=== PATIENT | male | born 1970 | race Caucasian/White ===

== ENCOUNTER 2018-10-12 08:53 | Inpatient (IN) | payer OTHER ==
[~2018-10-12] VITALS: Ht 188 cm; Wt 107.7 kg
[2018-10-12 10:18] LABS: BASOPHILS # (AUTO) 0.02 x10^3/uL (0-0.1); BASOPHILS % (AUTO) 0 % (0-1); EOSINOPHILS # (AUTO) 0.06 x10^3/uL (0-0.4); EOSINOPHILS % (AUTO) 1 % (1-7); LYMPHOCYTES # (AUTO) 2.41 x10^3/uL (1-3.4); LYMPHOCYTES % (AUTO) 25 % (22-44); MD NO; MEAN CORPUSCULAR HEMOGLOBIN 30.9 pg (27.5-34.5); MEAN CORPUSCULAR HGB CONC 33.5 g/dL (33.2-36.2); MEAN CORPUSCULAR VOLUME 92.3 fL (81-97); MEAN PLATELET VOLUME 7.9 fL (7.4-10.4); MONOCYTES # (AUTO) 0.68 x10^3/uL (0.2-0.8); MONOCYTES % (AUTO) 7 % (2-9); NEUTROPHILS # (AUTO) 6.65 x10^3/uL (1.8-6.8); NEUTROPHILS % (AUTO) 68 % (42-75); PLATELET COUNT 231 x10^3/uL (130-400); RED BLOOD COUNT 5.35 x10^6/uL (4.38-5.82); RED CELL DISTRIBUTION WIDTH 13.4 % (9.4-14.8)
[2018-10-12 10:28] LABS: INTERNATIONAL NORMALIZED RATIO 1.06 (0.93-1.1); PROTHROMBIN TIME 11.2 Seconds (9.6-11.5)
[2018-10-12 10:38] LABS: ANION GAP 7 mmol/L (5-15); CALCIUM 9.5 mg/dL (8.5-10.1); CHLORIDE 106 mmol/L (98-107)
[2018-10-12] MEDS ORDERED: DEXAMETHASONE 4 MG TABLET ONE (10:42)
[2018-10-12 10:45] LABS: ACETAMINOPHEN < 2 mcg/mL (10-30); ALANINE AMINOTRANSFERASE 26 U/L (12-78); ALKALINE PHOSPHATASE 88 U/L (45-117); BILIRUBIN,TOTAL 1.1 mg/dL (0.2-1.0); CREATININE 1.04 mg/dL (0.7-1.3); SALICYLATE LEVEL < 1.7 mg/dL (2.8-20.0); TOTAL PROTEIN 7.8 g/dL (6.4-8.2); TROPONIN I < 0.015 ng/mL (0.000-0.045)
--- NOTE | 2018-10-12 10:48 | NUR ---
PT MOVED TO ROOM 02. PT TAKEN TO MRI. PT IS ALERT, ORIENTED, WITH NAD.
[2018-10-12 10:57] LABS: MICROSCOPIC NOT IND
[2018-10-12 10:58] LABS: CULTURE INDICATED? NO
[2018-10-12] MEDS ORDERED: DEXAMETHASONE 4 MG TABLET PO ONE (11:00)
[2018-10-12 11:07] LABS: AMPHETAMINE SCREEN, URINE Negative (Negative); BARBITURATE SCREEN, URINE Negative (Negative); BENZODIAZEPINE SCREEN, URINE Negative (Negative); CANNABINOID SCREEN, URINE Positive (Negative); COCAINE SCREEN, URINE Negative (Negative); METHADONE SCREEN, URINE Negative (Negative); OPIATE SCREEN, URINE Negative (Negative)
[2018-10-12] MEDS ORDERED: GADOBUTROL 10 MMOL/10 ML PFS ONE (11:36)
--- NOTE | 2018-10-12 11:37 | NUR ---
NIHSS COMPLETED WITH A SCORE OF 1 DUE TO DIFFICULTY NAMING A FEW OF THE OBJECTS ON THE NAMING LIST.
--- NOTE | 2018-10-12 12:26 | NUR ---
HOSPITALIST AT BEDSIDE.
[2018-10-12] MEDS ORDERED: OXYcodone/APAP 10/325MG TABLET ONE (12:53)
[2018-10-12] MEDS ORDERED: hydrALAzine 20 MG/ML, 1ML IVPush PRN (13:00)
[2018-10-12] MEDS ORDERED: ACETAMINOPHEN 325 MG TABLET PO PRN (13:00)
[2018-10-12] MEDS ORDERED: OXYcodone/APAP 10/325MG TABLET PO ONE (13:00)
[2018-10-12] MEDS ORDERED: ONDANSETRON 2MG/ML, 2ML IVPush PRN (13:00)
[2018-10-12] MEDS ORDERED: GUAIFENESIN/DM 200-20MG, 10ML UDC PO PRN (13:00)
[2018-10-12] MEDS ORDERED: ONDANSETRON ODT 4 MG PO PRN (13:00)
--- NOTE | 2018-10-12 13:24 | NUR ---
TASK RN: FIRST CONTACT WITH PT: PROVIDED REPORT TO SHYANNE HORTA. ALL QUESTIONS ANSWERED. PT READY TO TRANSFER TO FLOOR FROM ED.
[2018-10-12 14:00] VITALS: BP 123/80
[2018-10-12] MEDS: DEXAMETHASONE 4 MG/ML, 1ML IVPush SCH ×2 (14:36→19:58)
[2018-10-12 19:58] VITALS: BP 106/68
[2018-10-13 02:19] VITALS: BP 107/60
[2018-10-13] MEDS: DEXAMETHASONE 4 MG/ML, 1ML IVPush SCH ×4 (02:44→20:38)
[2018-10-13 05:14] LABS: BASOPHILS % (AUTO) 0 % (0-1); EOSINOPHILS % (AUTO) 0 % (1-7); LYMPHOCYTES # (AUTO) 1.14 x10^3/uL (1-3.4); LYMPHOCYTES % (AUTO) 12 % (22-44); MD NO; MEAN CORPUSCULAR HEMOGLOBIN 31.7 pg (27.5-34.5); MEAN CORPUSCULAR VOLUME 93.3 fL (81-97); MEAN PLATELET VOLUME 8.1 fL (7.4-10.4); MONOCYTES # (AUTO) 0.19 x10^3/uL (0.2-0.8); MONOCYTES % (AUTO) 2 % (2-9); NEUTROPHILS % (AUTO) 86 % (42-75); PLATELET COUNT 249 x10^3/uL (130-400); RED BLOOD COUNT 5.23 x10^6/uL (4.38-5.82); RED CELL DISTRIBUTION WIDTH 13.8 % (9.4-14.8)
[2018-10-13 05:25] LABS: ALBUMIN 3.7 g/dL (3.4-5.0); ANION GAP 9 mmol/L (5-15); CALCIUM 9.7 mg/dL (8.5-10.1); CHLORIDE 109 mmol/L (98-107)
[2018-10-13 05:29] LABS: ALANINE AMINOTRANSFERASE 21 U/L (12-78); ALKALINE PHOSPHATASE 78 U/L (45-117); BILIRUBIN,TOTAL 1.2 mg/dL (0.2-1.0); CREATININE 0.94 mg/dL (0.7-1.3); TOTAL PROTEIN 7.6 g/dL (6.4-8.2)
[2018-10-13 09:07] VITALS: BP 117/77
[2018-10-13 12:30] VITALS: BP 113/72
[2018-10-13 18:37] VITALS: BP 118/74
[2018-10-14 00:05] VITALS: BP 116/69
[2018-10-14] MEDS: DEXAMETHASONE 4 MG/ML, 1ML IVPush SCH ×4 (03:48→20:38)
[2018-10-14] MEDS ORDERED: THROMBIN 5,000 UNIT VIAL TP ONE ×2 (06:57→06:58)
[2018-10-14] MEDS ORDERED: BACITRACIN 50,000 UNIT ONE (06:57)
[2018-10-14] MEDS ORDERED: BACITRACIN/POLYMIXIN B SULFATE OINT 14 GM ONE (06:57)
[2018-10-14] MEDS ORDERED: BUPIVACAINE/PF-EPI 0.5% 1:200K ONE (06:57)
[2018-10-14] MEDS ORDERED: MANNITOL PMX 20% 500 ML ONE (06:59)
[2018-10-14] MEDS ORDERED: CEFUROXIME 1.5 GM ONE (07:00)
[2018-10-14] MEDS ORDERED: FUROSEMIDE 20 MG/2 ML ONE (07:00)
[2018-10-14] MEDS ORDERED: THROMBIN 20,000 UNIT VIAL TP ONE (07:00)
[2018-10-14] MEDS ORDERED: REMIFENTANIL 2 MG ONE ×2 (07:12→09:43)
[2018-10-14] MEDS ORDERED: MIDAZOLAM 1 MG/ML, 2ML ONE (07:19)
[2018-10-14] MEDS ORDERED: FENTANYL PF 250 MCG/5ML ONE (07:19)
[2018-10-14] MEDS ORDERED: GADOBUTROL 10 MMOL/10 ML PFS ONE (07:45)
[2018-10-14] MEDS ORDERED: LORazepam 2 MG/ML, 1ML IVPush PRN (08:00)
[2018-10-14] MEDS ORDERED: OXYcodone 5 MG/5 ML ORAL.SOL UDC PO PRN (08:00)
[2018-10-14] MEDS ORDERED: ONDANSETRON ODT 8 MG PO PRN (08:00)
[2018-10-14] MEDS ORDERED: FENTANYL PF 100 MCG/2ML IV PRN (08:00)
[2018-10-14] MEDS ORDERED: ONDANSETRON 2MG/ML, 2ML IV PRN ×2 (08:00→14:00)
[2018-10-14] MEDS ORDERED: HYDROmorphone 2 MG/ML, 1ML IVPush PRN (08:00)
[2018-10-14] MEDS ORDERED: ACETAMINOPHEN 325 MG TABLET PO PRN ×2 (08:00→14:00)
[2018-10-14] MEDS ORDERED: PROMETHAZINE 25 MG/ML, 1ML IV PRN (08:00)
[2018-10-14] MEDS ORDERED: FENTANYL PF 100 MCG/2ML ONE ×2 (11:50→12:06)
[2018-10-14] MEDS ORDERED: LORazepam 2 MG/ML, 1ML IV PRN (14:00)
[2018-10-14] MEDS ORDERED: NITROPRUSSIDE 50 MG in DEXTROSE 5% 248 ML IV PRN (14:00)
[2018-10-14] MEDS ORDERED: LABETALOL 250 MG in DEXTROSE 5% 200 ML IV PRN (14:00)
[2018-10-14] MEDS ORDERED: ACETAMINOPHEN 650 MG SUPP PR PRN ×2 (14:00)
[2018-10-14] MEDS: OXYcodone/APAP 5/325MG TABLET PO PRN ×2 (14:32→22:35)
[2018-10-14] MEDS: morphine SULFATE 10 MG/ML, 1ML IVPush PRN (14:32)
[2018-10-14] MEDS: CEFAZOLIN PMX 1GM/50ML 50 ML IVPB SCH ×2 (14:47→22:00)
[2018-10-14] MEDS: D5%-0.9% NACL+KCL 20MEQ 1,000 ML IV SCH (14:47)
[2018-10-14] MEDS ORDERED: PROPOFOL 10 MG/ML, 20ML ONE (15:39)
[2018-10-14] MEDS ORDERED: NEOSTIGMINE 1 MG/ML, 10ML ONE (15:39)
[2018-10-14] MEDS ORDERED: CEFAZOLIN 1,000 MG ONE (15:39)
[2018-10-14] MEDS ORDERED: ONDANSETRON 2MG/ML, 2ML ONE (15:39)
[2018-10-14] MEDS ORDERED: ROCURONIUM 10MG/ML,5ML ONE (15:39)
[2018-10-14] MEDS ORDERED: GLYCOPYRROLATE 0.2MG/1ML, 5ML ONE (15:39)
[2018-10-14] MEDS ORDERED: DEXAMETHASONE 4 MG/ML, 5ML ONE (15:39)
[2018-10-15] MEDS: morphine SULFATE 10 MG/ML, 1ML IVPush PRN ×6 (00:04→19:45)
[2018-10-15] MEDS: DEXAMETHASONE 4 MG/ML, 1ML IVPush SCH ×4 (02:27→19:50)
[2018-10-15] MEDS: D5%-0.9% NACL+KCL 20MEQ 1,000 ML IV SCH ×2 (02:27→15:33)
[2018-10-15 08:00] VITALS: BP 104/62
[2018-10-15 13:15] VITALS: BP 134/74
[2018-10-15] MEDS: OXYcodone/APAP 5/325MG TABLET PO PRN ×2 (15:30→19:49)
[2018-10-15 21:00] VITALS: BP 107/66
[2018-10-16] MEDS: morphine SULFATE 10 MG/ML, 1ML IVPush PRN (02:45)
[2018-10-16] MEDS: OXYcodone/APAP 5/325MG TABLET PO PRN (02:47)
[2018-10-16] MEDS: DEXAMETHASONE 4 MG/ML, 1ML IVPush SCH ×4 (02:49→20:01)
[2018-10-16] MEDS: D5%-0.9% NACL+KCL 20MEQ 1,000 ML IV SCH ×2 (03:00→15:09)
[2018-10-16 03:11] VITALS: BP 120/78
[2018-10-16] MEDS: ACETAMINOPHEN 325 MG TABLET PO PRN ×2 (11:52→20:01)
[2018-10-16] MEDS ORDERED: GADOBUTROL 10 MMOL/10 ML PFS ONE (14:46)
[2018-10-17] MEDS: ACETAMINOPHEN 325 MG TABLET PO PRN ×3 (02:57→15:18)
[2018-10-17] MEDS: DEXAMETHASONE 4 MG/ML, 1ML IVPush SCH ×2 (02:57→08:39)
[2018-10-17] MEDS: D5%-0.9% NACL+KCL 20MEQ 1,000 ML IV SCH (03:18)
[2018-10-17] MEDS ORDERED: FENTANYL PF 100 MCG/2ML IVPush ONE (09:00)
[2018-10-17] MEDS ORDERED: MIDAZOLAM 1 MG/ML, 2ML IVPush ONE (09:00)
[2018-10-17 09:23] LABS: MEAN CORPUSCULAR HEMOGLOBIN 31.1 pg (27.5-34.5); MEAN CORPUSCULAR HGB CONC 33.3 g/dL (33.2-36.2); MEAN CORPUSCULAR VOLUME 93.3 fL (81-97); MEAN PLATELET VOLUME 7.9 fL (7.4-10.4); PLATELET COUNT 230 x10^3/uL (130-400); RED BLOOD COUNT 4.68 x10^6/uL (4.38-5.82); RED CELL DISTRIBUTION WIDTH 13.6 % (9.4-14.8)
[2018-10-17 09:31] LABS: ANION GAP 6 mmol/L (5-15); CHLORIDE 110 mmol/L (98-107)
[2018-10-17 09:32] LABS: CREATININE 0.86 mg/dL (0.7-1.3)
[2018-10-17] MEDS: OXYcodone/APAP 5/325MG TABLET PO PRN (10:07)
[2018-10-17 10:12] LABS: BASOPHILS # (AUTO) 0.05 x10^3/uL (0-0.1); BASOPHILS % (AUTO) 0 % (0-1); EOSINOPHILS % (AUTO) 0 % (1-7); LYMPHOCYTES # (AUTO) 1.39 x10^3/uL (1-3.4); LYMPHOCYTES % (AUTO) 9 % (22-44); MD SCAN; MONOCYTES # (AUTO) 0.82 x10^3/uL (0.2-0.8); MONOCYTES % (AUTO) 5 % (2-9); NEUTROPHILS # (AUTO) 13.48 x10^3/uL (1.8-6.8); NEUTROPHILS % (AUTO) 86 % (42-75)
[2018-10-17] MEDS: DEXAMETHASONE 4 MG TABLET PO SCH ×2 (16:47→21:38)
[2018-10-17] MEDS: DOCUSATE 100 MG CAPSULE PO PRN (16:47)
[2018-10-17] MEDS: BUTALB/APAP/CAFFEINE 50MG/325MG/40MG PO PRN (21:38)
[2018-10-17] MEDS: ATORVASTATIN 80 MG TABLET PO SCH (21:38)
[2018-10-17] MEDS: FAMOTIDINE 20 MG TABLET PO SCH (21:38)
[2018-10-18 03:53] VITALS: BP 103/63
[2018-10-18 05:19] LABS: BASOPHILS # (AUTO) 0.01 x10^3/uL (0-0.1); BASOPHILS % (AUTO) 0 % (0-1); EOSINOPHILS % (AUTO) 0 % (1-7); LYMPHOCYTES # (AUTO) 1.49 x10^3/uL (1-3.4); LYMPHOCYTES % (AUTO) 10 % (22-44); MD NO; MEAN CORPUSCULAR HEMOGLOBIN 31.8 pg (27.5-34.5); MEAN CORPUSCULAR HGB CONC 34.1 g/dL (33.2-36.2); MEAN CORPUSCULAR VOLUME 93.1 fL (81-97); MEAN PLATELET VOLUME 7.8 fL (7.4-10.4); MONOCYTES # (AUTO) 0.73 x10^3/uL (0.2-0.8); MONOCYTES % (AUTO) 5 % (2-9); NEUTROPHILS # (AUTO) 12.17 x10^3/uL (1.8-6.8); NEUTROPHILS % (AUTO) 85 % (42-75); PLATELET COUNT 226 x10^3/uL (130-400); RED BLOOD COUNT 4.87 x10^6/uL (4.38-5.82)
[2018-10-18 05:31] LABS: ANION GAP 6 mmol/L (5-15); CALCIUM 8.9 mg/dL (8.5-10.1); CHLORIDE 108 mmol/L (98-107)
[2018-10-18 05:35] LABS: CHOL/HDL RATIO 3.3; CHOLESTEROL, TOTAL 144 mg/dL (140-239); CREATININE 0.95 mg/dL (0.7-1.3); HDL CHOL % 30 % (26-37); HDL CHOLESTEROL (DIRECT) 43 mg/dL (40-60); LDL CHOLESTEROL,CALCULATED 84 mg/dL (54-169); TRIGLYCERIDES 83 mg/dL (50-200); VLDL CHOLESTEROL 17 mg/dL (0-25)
[2018-10-18 07:13] VITALS: BP 119/73
[2018-10-18] MEDS: BUTALB/APAP/CAFFEINE 50MG/325MG/40MG PO PRN (08:16)
[2018-10-18] MEDS: FAMOTIDINE 20 MG TABLET PO SCH ×2 (08:16→20:55)
[2018-10-18] MEDS: DEXAMETHASONE 4 MG TABLET PO SCH ×3 (08:16→20:55)
[2018-10-18 13:35] VITALS: BP 96/58
[2018-10-18] MEDS: DOCUSATE 100 MG CAPSULE PO PRN (16:36)
[2018-10-18] MEDS: ACETAMINOPHEN 325 MG TABLET PO PRN (18:29)
[2018-10-18 18:37] VITALS: BP 123/72
[2018-10-18] MEDS: ATORVASTATIN 80 MG TABLET PO SCH (20:57)
[2018-10-19 02:21] VITALS: BP 105/66
[2018-10-19 06:52] VITALS: BP 119/75
[2018-10-19] MEDS: FAMOTIDINE 20 MG TABLET PO SCH (09:04)
[2018-10-19] MEDS: DEXAMETHASONE 4 MG TABLET PO SCH ×2 (09:04→16:07)
[2018-10-19] MEDS: ACETAMINOPHEN 325 MG TABLET PO PRN (10:29)
[2018-10-19 13:17] VITALS: BP 121/65
[2018-10-19] MEDS ORDERED: FAMO20TA7 PO (13:53)
[2018-10-19] MEDS ORDERED: BUTA-177 PO (13:53)
[2018-10-19] MEDS ORDERED: DOCU-131 PO (13:53)
[2018-10-19] MEDS ORDERED: ONDA4TAB13 PO (13:53)
[2018-10-19] MEDS ORDERED: DEXA4TAB66 PO (13:53)
[2018-10-19] MEDS ORDERED: ATOR-2 PO (13:53)
[2018-10-19] MEDS ORDERED: OXYC1TAB7 PO (13:53)
== END 2018-10-19 17:42 | disposition home or self-care (01) | DRG 25 ==
LOC: ED 10:32 → EDIP 10:33 → ED 10:43 → 3NW 14:12 → CCU 10-14 12:24 → 4NOR 10-17 16:05
PROVIDERS: ADMIT Internal Medicine; ATTEND Internal Medicine
PROC: 03HY32Z Insertion of Monitoring Device into Upper Artery, Percutaneous Approach (ICD-10-PCS; 2018-10-12)
PROC: 00B70ZZ Excision of Cerebral Hemisphere, Open Approach (ICD-10-PCS; principal; 2018-10-14 07:30)
DX: C71.2 Malignant neoplasm of temporal lobe (principal); G93.6 Cerebral edema; G93.40 Encephalopathy, unspecified; Q21.1 Atrial septal defect; J45.909 Unspecified asthma, uncomplicated; F12.90 Cannabis use, unspecified, uncomplicated; Z80.0 Family history of malignant neoplasm of digestive organs; Z80.3 Family history of malignant neoplasm of breast; Z87.442 Personal history of urinary calculi; Z87.891 Personal history of nicotine dependence; Z90.49 Acquired absence of other specified parts of digestive tract
CPT/HCPCS: 36415; 99285; J3490; 70450; 70552; 70553; 71045; 71250; 74176; 80048; 80053; 80061; 80307; 80329; 81003; 82140; 83605; 83735; 84100; 84484; 85025; 85610; 87081; 88307; 88331; 93005; 93306; 93880; A9585; C1713; G0378; J0690; J0697; J1100; J2250; J2405; J2704; J2710; J3010; 92523-GN; A4648; G0480; J1940; J2270; J3480

== ENCOUNTER → 2018-11-01 | Outpatient (CLI) | payer OTHER ==
[~2018-11-01] MED LIST: ATOR-2 PO; BUTA-177 PO; DEXA4TAB66 PO; DOCU-131 PO; FAMO20TA7 PO; ONDA4TAB13 PO; OXYC1TAB7 PO
== END | disposition home or self-care (01) ==
LOC: ROC 08:17
PROVIDERS: ATTEND Radiology Radiation Oncology
DX: C71.9 Malignant neoplasm of brain, unspecified (principal)
CPT/HCPCS: 99214; G0463

== ENCOUNTER → 2018-11-08 | Outpatient (CLI) | payer OTHER ==
[~2018-11-08] MED LIST changes: +GADOBUTROL 10 MMOL/10 ML PFS ONE
== END | disposition home or self-care (01) ==
LOC: CFH 11:45
PROVIDERS: ATTEND Radiology Radiation Oncology
DX: C71.2 Malignant neoplasm of temporal lobe (principal); I78.1 Nevus, non-neoplastic
CPT/HCPCS: 70553; A9585

== ENCOUNTER 2018-11-22 04:24 | Inpatient (IN) | payer OTHER ==
[~2018-11-22] VITALS: Ht 188 cm; Wt 106.3 kg
[~2018-11-22 04:24] MED LIST changes: -GADOBUTROL 10 MMOL/10 ML PFS ONE
[2018-11-22] MEDS ORDERED: ONDANSETRON ODT 4 MG ONE (05:14)
[2018-11-22] MEDS ORDERED: HYDROmorphone 1 MG/ML, 1ML AMP ONE ×4 (05:14→13:19)
--- NOTE | 2018-11-22 05:14 | NUR ---
PT UNABLE TO SIT STILL FOR AN EKG. WILL TRY AGAIN AT A LATER TIME.
--- NOTE | 2018-11-22 05:15 | NUR ---
PT UNABLE TO SIT OR LIE FOR IV START. GOT MED ORDER CHANGED TO IM
[2018-11-22] MEDS ORDERED: HYDROmorphone 1 MG/ML, 1ML AMP IVPush PRN (05:30)
[2018-11-22] MEDS ORDERED: ONDANSETRON 2MG/ML, 2ML IVPush ONE ×2 (05:30→06:30)
[2018-11-22] MEDS ORDERED: SODIUM CHLORIDE FLUSH 10ML SYR IVF ONE ×2 (05:30→06:30)
[2018-11-22] MEDS ORDERED: HYDROmorphone 2 MG/ML, 1ML IM ONE (05:30)
[2018-11-22] MEDS ORDERED: ONDANSETRON ODT 4 MG PO ONE (05:30)
--- NOTE | 2018-11-22 05:42 | NUR ---
RADIOLGY DELAY- STARTING IV, PATIENT UNABLE TO LIE DOWN FOR X RAY
--- NOTE | 2018-11-22 05:49 | NUR ---
PT UNABLE TO SIT STILL FOR EKG.
[2018-11-22 05:50] LABS: MEAN CORPUSCULAR HEMOGLOBIN 32.2 pg (27.5-34.5); MEAN CORPUSCULAR HGB CONC 33.5 g/dL (33.2-36.2); MEAN CORPUSCULAR VOLUME 96.1 fL (81-97); MEAN PLATELET VOLUME 7.1 fL (7.4-10.4); PLATELET COUNT 147 x10^3/uL (130-400); RED BLOOD COUNT 5.05 x10^6/uL (4.38-5.82); RED CELL DISTRIBUTION WIDTH 16.3 % (9.4-14.8)
[2018-11-22 06:01] LABS: ALANINE AMINOTRANSFERASE 95 U/L (12-78); ALBUMIN 3.8 g/dL (3.4-5.0); ANION GAP 7 mmol/L (5-15); CALCIUM 9.6 mg/dL (8.5-10.1); CHLORIDE 109 mmol/L (98-107)
[2018-11-22 06:06] LABS: ALKALINE PHOSPHATASE 94 U/L (45-117); BILIRUBIN,TOTAL 0.9 mg/dL (0.2-1.0); CREATININE 0.97 mg/dL (0.7-1.3); TOTAL PROTEIN 7.4 g/dL (6.4-8.2); TROPONIN I < 0.015 ng/mL (0.000-0.045)
[2018-11-22] MEDS ORDERED: KETOROLAC 30 MG/1 ML ONE (06:18)
--- NOTE | 2018-11-22 06:26 | NUR ---
PT TO CT
[2018-11-22] MEDS ORDERED: DIAZEPAM 5 MG/ML, 2ML IVPush ONE (06:30)
[2018-11-22] MEDS ORDERED: KETOROLAC 30 MG/1 ML IVPush ONE (06:30)
[2018-11-22 06:42] LABS: MD YES
[2018-11-22 06:44] LABS: BASOPHILS # (AUTO) 0.01 x10^3/uL (0-0.1); BASOPHILS % (AUTO) 0 % (0-1); EOSINOPHILS # (AUTO) 0.01 x10^3/uL (0-0.4); EOSINOPHILS % (AUTO) 0 % (1-7); LYMPHOCYTES # (AUTO) 2.05 x10^3/uL (1-3.4); LYMPHOCYTES % (AUTO) 15 % (22-44); MONOCYTES # (AUTO) 0.41 x10^3/uL (0.2-0.8); MONOCYTES % (AUTO) 3 % (2-9); NEUTROPHILS # (AUTO) 11.54 x10^3/uL (1.8-6.8); NEUTROPHILS % (AUTO) 82 % (42-75)
[2018-11-22 06:45] LABS: BAND#(MANUAL) 0.42 x10^3/uL; BANDS%(MANUAL) 3 % (0-7); LYMPHS% (MANUAL) 15 % (22-44); MONOS% (MANUAL) 10 % (2-9); MYELOCYTES# (MANUAL) 0.14 x10^3/uL (0-0); MYELOCYTES% (MANUAL) 1 % (0-0); SEG#(MANUAL) 9.94 x10^3/uL (1.8-6.8); SEGS% (MANUAL) 71 % (42-75)
[2018-11-22 06:47] LABS: <PLATELET ESTIMATE> ADEQUATE; <PLT MORPHOLOGY> NORMAL PLT MORPH; <RBC MORPHOLOGY> NORMAL
[2018-11-22] MEDS ORDERED: OMNIPAQUE 350 MG/ML, 100ML BOTTLE ONE (07:01)
--- NOTE | 2018-11-22 07:03 | NUR ---
PT GIVEN WATER TO DRINK FOR UA
--- NOTE | 2018-11-22 08:00 | NUR ---
IV VALIEUM HELD AT THIS TIME PATIENT REPORTS PAIN CONTROLLED. PROVIDER MADE AWARE. WILL CONTINUE TO MONITOR
[2018-11-22 08:09] LABS: INTERNATIONAL NORMALIZED RATIO 0.92 (0.93-1.1); PROTHROMBIN TIME 9.7 Seconds (9.6-11.5)
--- NOTE | 2018-11-22 08:31 | NUR ---
HOSPITALIST AT BEDSIDE
[2018-11-22 08:44] LABS: MICROSCOPIC NOT IND
[2018-11-22 08:51] LABS: CULTURE INDICATED? NO
[2018-11-22] MEDS ORDERED: ACETAMINOPHEN 325 MG TABLET PO PRN (09:00)
[2018-11-22] MEDS ORDERED: ONDANSETRON ODT 4 MG PO PRN ×2 (09:00→09:30)
[2018-11-22] MEDS ORDERED: HEPARIN 5,000 UNITS/ML, 1ML ONE (09:03)
[2018-11-22] MEDS ORDERED: HEPARIN 25,000 UNITS/500ML PMX 500 ML ONE (09:03)
[2018-11-22] MEDS ORDERED: DOCUSATE 100 MG CAPSULE PO PRN (09:30)
[2018-11-22] MEDS ORDERED: BUTALB/APAP/CAFFEINE 50MG/325MG/40MG PO PRN (09:30)
[2018-11-22] MEDS ORDERED: OXYcodone/APAP 5/325MG TABLET PO PRN (09:30)
--- NOTE | 2018-11-22 09:57 | NUR ---
PHARMACY CALLED TO VERIFY HEPARIN GTT ORDER. PHARMACIST VERIFIED TO START GTT ON THE 80-100 KG RANGE. TO ADMINISTER SOON SOON OCT HAIR PREPARER
[2018-11-22] MEDS ORDERED: HEPARIN 5,000 UNITS/ML, 1ML IV ONE (10:00)
[2018-11-22] MEDS ORDERED: OMEPRAZOLE 20 MG CAPSULE.DR ONE (10:06)
--- NOTE | 2018-11-22 10:14 | NUR ---
PATIENT RESTING IN BED COMFORTABLY- SLEEPING. CONTINUES TO REPORT TOLERABLE PAIN LEVEL (2/10). VSS. ON PLASTIC BATTERY ASSEMBLER W/ STABLE VS. CALL HOLGUIN IN HAND W/ SIDE RAILS UP. DIET ORDERED AFTER SPEAKING W/ DR. CLAUDIO.
[2018-11-22] MEDS: HEPARIN 25,000 UNITS/500ML PMX 500 ML IV PRN ×2 (10:34→23:47)
--- NOTE | 2018-11-22 10:57 | NUR ---
hospital bed ordered for patient
[2018-11-22] MEDS: LACTATED RINGERS 1,000 ML IV SCH (11:13)
[2018-11-22] MEDS: PANTOPROZOLE 40MG TABLET PO SCH (11:14)
--- NOTE | 2018-11-22 11:20 | NUR ---
REPORTS RIGHT RIB PAIN RETURNED TO 03/08-MEDICATED W/ VALIUM. POX TO 88% THOUGHT TO BE D/T MEDICATIONS. PLACED ON 2L NC=94% MOVED ONTO HOSPITAL BED
[2018-11-22] MEDS: HYDROmorphone 1 MG/ML, 1ML AMP IVPush PRN ×2 (13:07→13:45)
--- NOTE | 2018-11-22 13:15 | NUR ---
PATIENT RESTING COMFORTABLY FROM 1130-TILL 1315 WHEN HE AWOKE TO IMMENSE RIGHT LATERAL CHEST PAIN/SHORTNESS OF BREATH. POX 89% ON 6L NC. PLACED ON NRB. MEDICATED W/ DIALUDID 1MG X 2 W/ NO RELIEF. PATIENT UNABLE TO SIT BECAUSE OF THE PAIN. HOSPITALIST PAGED
[2018-11-22] MEDS ORDERED: FENTANYL PF 100 MCG/2ML ONE (13:38)
[2018-11-22] MEDS ORDERED: FENTANYL PF 100 MCG/2ML IVPush ONE (14:00)
--- NOTE | 2018-11-22 14:01 | NUR ---
PAIN COMPLETELY IMPROVED 15 MIN AFTER FENTANYL ADMIN (0/10). PATIENT BACK INTO BED AND BACK ON 2L NC. ON CIRCUS PERFORMER TO CLOSELY MONITOR. EVONNE ZARATE RN GIVEN REPORT
--- NOTE | 2018-11-22 14:19 | NUR ---
LUNCH RN: PT SLEEPING COMFORTABLY IN BED WITH FAMILY AT BEDSIDE. CT. TED. CALL LIGHT WITHIN REACH. AWAITING ROOM ON FLOOR
--- NOTE | 2018-11-22 15:43 | NUR ---
PATIENT AWOKEN FROM [place]AP. REPORTS PAIN BACK TO 9/10. MD CALLED FOR RE-EVAL. MD TO SEE PATIENT SHORTLY. ORDERED PERCOCET HELD MOBILE HEALTH VEHICLE OPERATOR FEELS INSUFFICIENT FOR PAIN. VSS. HEPARIN INFUSING WITHOUT ADVERSE EFFECT. HELPED RE-POSITION AND GIVEN ADDITIONAL WATER. WILL CONTINUE TO CLOSELY MONITOR
[2018-11-22] MEDS ORDERED: DEXAMETHASONE 4 MG TABLET ONE ×2 (15:47→16:25)
[2018-11-22] MEDS ORDERED: DEXAMETHASONE 4 MG TABLET PO SCH ×2 (16:00→21:00)
[2018-11-22] MEDS ORDERED: OXYcodone/APAP 7.5/325MG TABLET ONE (16:22)
[2018-11-22] MEDS: OXYcodone/APAP 7.5/325MG TABLET PO PRN ×2 (16:29→20:55)
--- NOTE | 2018-11-22 16:31 | NUR ---
SPOKE TO PROVIDER FOR PATIENT'S INCREASING PAIN (VERBAL ORDER RECEIVED FOR OXY 7.5 Q4 PRN, DECADRON 2MG BID & LAMICTAL 75MG QPM.) MORNING DOSE OF DECADRON NOT GIVEN-SO PER MD ORDER 2MG OF DECADRON GIVEN NOW & ADDITIONAL 2MG TO BE GIVEN THIS EVENING. LAB AT BEDSIDE DRAWING 6 HOUR COAGS-WILL ASSESS RESULT AND ADJUST HEPARIN ACCORDINGLY. HEPARIN INFUSING WITHOUT ABNORMALITY. VSS
--- NOTE | 2018-11-22 17:02 | NUR ---
ANT Xa 6 HOUR RESULTS REVIEWED (O.3). HAD COLLEGUE REVIEW INDEPENDENTLY WELL. DRIP TO REMAIN AT 1100 UNITS (22Ml). HOSPITALIST TO BEDSIDE TO ADDRESS PATIENT CONTINUED PAIN. HOSPITALIST WORRIED ABOUT CUMALATIVE EFFECT OF PRIOR ADMINISTRATIONS DESPITE PATIENT CONTINUED PAIN. BUMP GRADER OPERATOR TO CLOSELY MONITOR AND PAGE NEEDED. PATIENT/FAMILY UPDATED ON POC.
--- NOTE | 2018-11-22 18:15 | NUR ---
SECOND 6 HOUR ANTI-XA ORDERED FOR 1030PM TONIGHT TIMED STUDY
[2018-11-22 20:30] VITALS: BP 125/60
[2018-11-22] MEDS: ATORVASTATIN 80 MG TABLET PO SCH (20:55)
[2018-11-22] MEDS: LAMOTRIGINE 25 MG TABLET PO SCH (20:55)
[2018-11-22] MEDS: DEXAMETHASONE 4 MG TABLET PO SCH (20:56)
[2018-11-22] MEDS: HEPARIN 5,000 UNITS/ML, 1ML IV PRN (23:46)
[2018-11-23 02:34] VITALS: BP 128/79
[2018-11-23] MEDS: OXYcodone/APAP 7.5/325MG TABLET PO PRN ×2 (03:56→08:03)
[2018-11-23 06:55] LABS: BASOPHILS # (AUTO) 0.02 x10^3/uL (0-0.1); BASOPHILS % (AUTO) 0 % (0-1); EOSINOPHILS # (AUTO) 0.01 x10^3/uL (0-0.4); EOSINOPHILS % (AUTO) 0 % (1-7); LYMPHOCYTES # (AUTO) 1.49 x10^3/uL (1-3.4); LYMPHOCYTES % (AUTO) 12 % (22-44); MD NO; MEAN CORPUSCULAR HEMOGLOBIN 32.2 pg (27.5-34.5); MEAN CORPUSCULAR HGB CONC 33.7 g/dL (33.2-36.2); MEAN CORPUSCULAR VOLUME 95.7 fL (81-97); MONOCYTES % (AUTO) 7 % (2-9); NEUTROPHILS # (AUTO) 9.86 x10^3/uL (1.8-6.8); NEUTROPHILS % (AUTO) 80 % (42-75); PLATELET COUNT 147 x10^3/uL (130-400); RED BLOOD COUNT 4.86 x10^6/uL (4.38-5.82); RED CELL DISTRIBUTION WIDTH 16.5 % (9.4-14.8)
[2018-11-23 07:00] LABS: ANION GAP 6 mmol/L (5-15); CALCIUM 9.4 mg/dL (8.5-10.1); CHLORIDE 107 mmol/L (98-107); CREATININE 0.75 mg/dL (0.7-1.3)
[2018-11-23] MEDS: HEPARIN 25,000 UNITS/500ML PMX 500 ML IV PRN (07:41)
[2018-11-23] MEDS: HEPARIN 5,000 UNITS/ML, 1ML IV PRN ×2 (07:44→21:01)
[2018-11-23] MEDS: PANTOPROZOLE 40MG TABLET PO SCH (07:45)
[2018-11-23] MEDS: DEXAMETHASONE 4 MG TABLET PO SCH ×2 (07:46→20:12)
[2018-11-23 10:20] VITALS: BP 124/80
[2018-11-23] MEDS: OXYcodone/APAP 10/325MG TABLET PO PRN ×3 (11:40→20:11)
[2018-11-23] MEDS: LACTATED RINGERS 1,000 ML IV SCH (11:41)
[2018-11-23 14:38] VITALS: BP 130/84
[2018-11-23 20:00] VITALS: BP 118/75
[2018-11-23] MEDS: ATORVASTATIN 80 MG TABLET PO SCH (20:11)
[2018-11-23] MEDS: LAMOTRIGINE 25 MG TABLET PO SCH (20:12)
[2018-11-23 23:21] LABS: BASOPHILS # (AUTO) 0.02 x10^3/uL (0-0.1); BASOPHILS % (AUTO) 0 % (0-1); EOSINOPHILS # (AUTO) 0.04 x10^3/uL (0-0.4); EOSINOPHILS % (AUTO) 0 % (1-7); LYMPHOCYTES % (AUTO) 13 % (22-44); MD NO; MEAN CORPUSCULAR HEMOGLOBIN 32.4 pg (27.5-34.5); MEAN CORPUSCULAR HGB CONC 33.7 g/dL (33.2-36.2); MEAN CORPUSCULAR VOLUME 96.1 fL (81-97); MEAN PLATELET VOLUME 6.9 fL (7.4-10.4); MONOCYTES # (AUTO) 0.88 x10^3/uL (0.2-0.8); MONOCYTES % (AUTO) 8 % (2-9); NEUTROPHILS # (AUTO) 8.77 x10^3/uL (1.8-6.8); NEUTROPHILS % (AUTO) 78 % (42-75); PLATELET COUNT 154 x10^3/uL (130-400); RED BLOOD COUNT 4.82 x10^6/uL (4.38-5.82); RED CELL DISTRIBUTION WIDTH 16.2 % (9.4-14.8)
[2018-11-24] MEDS: OXYcodone/APAP 10/325MG TABLET PO PRN ×4 (00:08→14:46)
[2018-11-24 00:09] VITALS: BP 117/75
[2018-11-24] MEDS: HEPARIN 25,000 UNITS/500ML PMX 500 ML IV PRN (00:32)
[2018-11-24] MEDS: LACTATED RINGERS 1,000 ML IV SCH (00:34)
[2018-11-24 03:05] LABS: BASOPHILS # (AUTO) 0.02 x10^3/uL (0-0.1); BASOPHILS % (AUTO) 0 % (0-1); EOSINOPHILS # (AUTO) 0.04 x10^3/uL (0-0.4); EOSINOPHILS % (AUTO) 0 % (1-7); LYMPHOCYTES # (AUTO) 1.04 x10^3/uL (1-3.4); LYMPHOCYTES % (AUTO) 10 % (22-44); MD NO; MEAN CORPUSCULAR HEMOGLOBIN 32.7 pg (27.5-34.5); MEAN CORPUSCULAR HGB CONC 34.2 g/dL (33.2-36.2); MEAN CORPUSCULAR VOLUME 95.5 fL (81-97); MEAN PLATELET VOLUME 6.8 fL (7.4-10.4); MONOCYTES # (AUTO) 0.34 x10^3/uL (0.2-0.8); MONOCYTES % (AUTO) 3 % (2-9); NEUTROPHILS # (AUTO) 8.89 x10^3/uL (1.8-6.8); NEUTROPHILS % (AUTO) 86 % (42-75); PLATELET COUNT 150 x10^3/uL (130-400); RED BLOOD COUNT 4.62 x10^6/uL (4.38-5.82)
[2018-11-24 03:17] LABS: ANION GAP 7 mmol/L (5-15); CALCIUM 9.5 mg/dL (8.5-10.1); CHLORIDE 106 mmol/L (98-107); CREATININE 0.72 mg/dL (0.7-1.3)
[2018-11-24 08:11] VITALS: BP 124/82
[2018-11-24] MEDS: PANTOPROZOLE 40MG TABLET PO SCH (08:36)
[2018-11-24] MEDS: DEXAMETHASONE 4 MG TABLET PO SCH (08:36)
[2018-11-24] MEDS: HEPARIN 5,000 UNITS/ML, 1ML IV PRN (10:05)
[2018-11-24 12:46] VITALS: BP 131/82
[2018-11-24] MEDS ORDERED: Enoxaparin 1 mg/kg protocol SQ SCH (13:00)
[2018-11-24] MEDS ORDERED: ENOXAPARIN 100 MG/ML SQ SCH (14:00)
[2018-11-24] MEDS ORDERED: ENOX100S4 SQ (17:35)
== END 2018-11-24 19:00 | disposition home or self-care (01) | DRG 175 ==
LOC: ED 08:13 → EDIP 08:57 → 4WST 20:21
PROVIDERS: ADMIT Internal Medicine; ATTEND Internal Medicine
DX: I26.99 Other pulmonary embolism without acute cor pulmonale (principal); G93.6 Cerebral edema; C71.9 Malignant neoplasm of brain, unspecified; J81.1 Chronic pulmonary edema; J98.11 Atelectasis; F12.90 Cannabis use, unspecified, uncomplicated; Z87.891 Personal history of nicotine dependence; Z86.73 Personal history of transient ischemic attack (TIA), and cerebral infarction without residual deficits; Z85.841 Personal history of malignant neoplasm of brain; Z80.3 Family history of malignant neoplasm of breast; Z80.0 Family history of malignant neoplasm of digestive organs
CPT/HCPCS: 36415; 71275; 74022; 80048; 80053; 81003; 83690; 83880; 84439; 84443; 84484; 85025; 85379; 85520; 85610; 85730; 93005; 93306; G0378; J1170; J1644; J1650; J1885; J3010; J3360; Q0162; Q9967; J7120

== ENCOUNTER 2019-01-26 08:01 | Outpatient (CLI) | payer OTHER ==
[~2019-01-26 08:01] MED LIST changes: +ENOX100S4 SQ
== END 2019-01-26 23:59 | disposition home or self-care (01) ==
LOC: ROC 08:01
PROVIDERS: ATTEND Radiology Radiation Oncology
DX: C71.2 Malignant neoplasm of temporal lobe (principal)
CPT/HCPCS: 99213; G0463

== ENCOUNTER 2019-03-03 13:05 | Inpatient (IN) | payer MEDICAID ==
[~2019-03-03] VITALS: Ht 188 cm; Wt 111.2 kg
[2019-03-03] MEDS ORDERED: PLEASE ENTER HEIGHT AND WEIGHT MC SCH (14:00)
[2019-03-03] MEDS ORDERED: SODIUM CHLORIDE FLUSH 10ML SYR IVF ONE (14:00)
[2019-03-03 14:13] LABS: BASOPHILS # (AUTO) 0.03 x10^3/uL (0-0.1); BASOPHILS % (AUTO) 0 % (0-1); EOSINOPHILS # (AUTO) 0.16 x10^3/uL (0-0.4); EOSINOPHILS % (AUTO) 2 % (1-7); LYMPHOCYTES # (AUTO) 2.33 x10^3/uL (1-3.4); LYMPHOCYTES % (AUTO) 23 % (22-44); MD NO; MEAN CORPUSCULAR HGB CONC 33.5 g/dL (33.2-36.2); MEAN CORPUSCULAR VOLUME 95.8 fL (81-97); MEAN PLATELET VOLUME 7.3 fL (7.4-10.4); MONOCYTES # (AUTO) 0.73 x10^3/uL (0.2-0.8); MONOCYTES % (AUTO) 7 % (2-9); NEUTROPHILS # (AUTO) 6.78 x10^3/uL (1.8-6.8); NEUTROPHILS % (AUTO) 68 % (42-75); PLATELET COUNT 199 x10^3/uL (130-400); RED BLOOD COUNT 5.23 x10^6/uL (4.38-5.82); RED CELL DISTRIBUTION WIDTH 14.4 % (9.4-14.8)
[2019-03-03 14:23] LABS: ALANINE AMINOTRANSFERASE 37 U/L (12-78); ALBUMIN 3.9 g/dL (3.4-5.0); ANION GAP 8 mmol/L (5-15); CALCIUM 9.5 mg/dL (8.5-10.1); CHLORIDE 108 mmol/L (98-107); CREATININE 1.24 mg/dL (0.7-1.3)
[2019-03-03 14:25] LABS: ALKALINE PHOSPHATASE 65 U/L (45-117); TOTAL PROTEIN 7.4 g/dL (6.4-8.2)
--- NOTE | 2019-03-03 14:51 | NUR ---
TO ROOM FROM LOBBY. NAD.
[2019-03-03] MEDS ORDERED: LAMO100T5 PO (14:58)
--- NOTE | 2019-03-03 15:00 | NUR ---
PT HAD CANCER THIS YEAR CRAINI CHEMO RADITION ALL DONE TODAY PT CAME IN D/T [facility] ERP AT BED SIDE FOR ER LUCHO
--- NOTE | 2019-03-03 15:15 | NUR ---
REPORT FROM SHYANNE ECHEVARRIA. ASSUMED CARE OF PATIENT AT THIS TIME. PATIENT SITTING IN GURNEY WITH FAMILY AT BEDSIDE, IV TO BE STARTED BY CONSUMER INSIGHT MANAGER STUDENT. AWAITING CT. NO ADDITIONAL NEEDS AT THIS TIME, NADN. LAST RADIATION AND CHEMO 01/15. CALL LIGHT WITHIN REACH.
--- NOTE | 2019-03-03 15:25 | NUR ---
PATIENT TO CT VIA TED CLEMENT.
--- NOTE | 2019-03-03 15:41 | NUR ---
pt came back from ct
--- NOTE | 2019-03-03 16:02 | NUR ---
ct result was out dr diaz called Dr. Lopez regarding pt's current condition vss
--- NOTE | 2019-03-03 16:13 | NUR ---
REPORT FROM SWATHI RAMOS RN. ERP CONSULTING DR OCHOA, AWAITING FURTHER ORDERS, NO ADDITIONAL NEEDS AT THIS TIME.
[2019-03-03] MEDS ORDERED: DEXAMETHASONE 4 MG/ML, 1ML ONE (16:19)
[2019-03-03] MEDS ORDERED: DEXAMETHASONE 4 MG/ML, 1ML IVPush SCH (16:30)
--- NOTE | 2019-03-03 16:33 | NUR ---
PATIENT TO BE ADMITTED, PATIENT/FAMILY UPDATED ON POCOmero JEAN. MEDICATION ADMINISTERED PER MD ORDER. PATIENT SITTING IN GURNEY SPEAKING WITH FAMILY AT BEDSIDE, VS UPDATED IN CHART, AWAITING BED ASSIGNMENT. Addendum: 03/03/19 at 1652 by ALFREDO AWAITING ADMIT ORDER AND BED ASSIGNMENT.
--- NOTE | 2019-03-03 17:01 | NUR ---
PATIENT IN MRI AT THIS TIME.
--- NOTE | 2019-03-03 17:45 | NUR ---
REPORT TO SHYANNE MESSINA.
[2019-03-03] MEDS ORDERED: ONDANSETRON 2MG/ML, 2ML IVPush PRN (18:00)
[2019-03-03] MEDS ORDERED: HYDROcodone/APAP 5/325 TABLET PO PRN (18:00)
[2019-03-03] MEDS ORDERED: morphine SULFATE 10 MG/ML, 1ML IVPush PRN (18:00)
[2019-03-03] MEDS ORDERED: ACETAMINOPHEN 325 MG TABLET PO PRN (18:00)
[2019-03-03] MEDS ORDERED: hydrALAzine 20 MG/ML, 1ML IVPush PRN (18:00)
--- NOTE | 2019-03-03 18:09 | NUR ---
PATIENT TRANSFERRED/ADMITTED TO HOSPITAL BED UPSTAIRS.
[2019-03-03 18:15] VITALS: BP 125/80
[2019-03-03 19:57] VITALS: BP 123/85
[2019-03-03] MEDS: ENOXAPARIN 120MG/0.8ML SQ SCH (20:00)
[2019-03-03] MEDS ORDERED: SIMVASTATIN 40 MG TABLET PO SCH (21:00)
[2019-03-03 22:36] LABS: AMPHETAMINE SCREEN, URINE Negative (Negative); BARBITURATE SCREEN, URINE Negative (Negative); BENZODIAZEPINE SCREEN, URINE Negative (Negative); CANNABINOID SCREEN, URINE Positive (Negative); COCAINE SCREEN, URINE Negative (Negative); METHADONE SCREEN, URINE Negative (Negative); OPIATE SCREEN, URINE Negative (Negative)
[2019-03-03] MEDS: DEXAMETHASONE 4 MG/ML, 1ML IVPush SCH (23:04)
[2019-03-04 01:48] VITALS: BP 131/81
[2019-03-04] MEDS: DEXAMETHASONE 4 MG/ML, 1ML IVPush SCH ×3 (05:47→17:34)
[2019-03-04 07:26] VITALS: BP 133/84
[2019-03-04] MEDS: ENOXAPARIN 120MG/0.8ML SQ SCH (07:52)
[2019-03-04 12:40] VITALS: BP 148/89
[2019-03-04] MEDS ORDERED: ONDA4TAB13 SL (17:42)
[2019-03-04] MEDS ORDERED: SIMV40TA3 PO (17:42)
[2019-03-04] MEDS ORDERED: ACET325T26 PO (17:42)
[2019-03-04] MEDS ORDERED: ENOX120S4 SQ (17:42)
[2019-03-04] MEDS ORDERED: DEXA4TAB66 PO ×3 (17:42→18:07)
[2019-03-04] MEDS ORDERED: OMEP-110 PO (18:07)
== END 2019-03-04 18:30 | disposition home or self-care (01) | DRG 55 ==
LOC: ED 15:26 → SUATTDRO 16:26 → EDIP 17:34 → 3NW 18:05
PROVIDERS: ADMIT Internal Medicine; ATTEND Internal Medicine
DX: D49.6 Neoplasm of unspecified behavior of brain (principal); E78.5 Hyperlipidemia, unspecified; G44.52 New daily persistent headache (NDPH); Z86.711 Personal history of pulmonary embolism; Z86.73 Personal history of transient ischemic attack (TIA), and cerebral infarction without residual deficits; Z87.891 Personal history of nicotine dependence
CPT/HCPCS: 36415; 70450; 70553; 80053; 80307; 85025; 96374; G0378; J1100; J1650